=== PATIENT | female | born 1980 | race Caucasian/White ===

== ENCOUNTER 2024-08-20 12:17 | Emergency (ER) | payer OTHER, SELFPAY ==
[2024-08-20 12:19] VITALS: BP 133/94
--- NOTE | 2024-08-20 13:02 | ED.GENMED ---
History of Present Illness
<JOSE LUIS Simons Last Filed: 08/21/24 08:06>
General
Chief Complaint: Abdominal Symptoms
Source: patient
Exam Limitations: none
Time Seen by Provider: 08/20/24 12:36
Nursing documentation reviewed up to this point in time: agreed with
History of Present Illness
History of Present Illness:
pt is a 43 y/o F
says she started having diarrhea 5 days ago and has been having very liquidity stools sicne
she felt weak, dehydrated, got muscle cramps
did tele doc visit 2 days ago and was told it was probably viral and not to try immoidum
she was eating minimallyb ecause anthing she ate/drank went right through her
she got 2 IV bags of fluid from a [facility] company and felt a little better transiently but the diarrhea returned
she tried 4 doses immodium yestrerday and contiues to have diarrhea sicne
she went 15 times overnight
she feels weak and dehydrated and hyngry
she is not having abodminal pain other than cramps just before stools
she has some nauesa
no fever/chills, no recent surgery no recent abx, no other household members with same symptoms
Past History
<JOSE LUIS Simons Last Filed: 08/21/24 08:06>
Past History
ED Past Medical History: None
ED Past Surgical History: None
Social History
Tobacco: Non-smoker
Alcohol: None
Drug: None
Personal:
Living: with family
Employment: Employed
Review of Systems
<JOSE LUIS Simons Last Filed: 08/21/24 08:06>
Review of Systems
Allergies reviewed?: Yes
All Other Systems: Not applicable
Phy Exam
<JOSE LUIS Simons Last Filed: 08/21/24 08:06>
Physical Exam
Physical Exam:
GENERAL: Alert , in no apparent distress
EYE: pupils equal and reactive
NECK: Supple
ENT: o/p clr, mmm.
CARDIAC: Regular rate and rhythm,
LUNGS: Clear breath sounds bilaterally, no acute respiratory distress, no wheezes/rales/rhonchi
ABDOMEN: Soft, without focal tenderness, no r/g, no cvat, normal bowel sounds
NEUROLOGICAL: Alert and oriented, no focal neuro deficits
SKIN: Warm and dry, skin intact.
MUSCULOSKELETAL: No edema, well perfused. neg charly's sign
PSYCH: Normal and appropriate interaction.
Course
<Mayte Goodson PA-C - Last Filed: 08/21/24 08:06>
Orders/Labs/Results
Orders:
Orders
08/20/24 12:57
0.9% Sodium Chloride 1000 ml [Nss] 1,000 ml IV BOLUS
08/20/24 13:19
CPK [Creatine Phosphokinase] Urgent
Complete Blood Count/With Diff Urgent
Comprehensive Metabolic Panel Urgent
HCG, Serum Qualitative Screen Urgent
Comment: ADD ON
Lactic Acid Urgent
Lipase Urgent
Magnesium Urgent
08/20/24 14:56
CT Abd/Pel (IV only)-DH only Urgent
Comment:
Reason For Exam: severe diarrhea; unable to toleate po
0.9% Sodium Chloride 1000 ml [Nss] 1,000 ml IV BOLUS
Ondansetron Injectable [Zofran] 4 mg IV NOW STA
08/20/24 15:04
Add On- LAB Urgent
Comments:: hcg
Tests Added?: HCG
08/20/24 19:08
Norovirus by PCR Urgent
NACHO Source: Feces/Stool
Specimen Description:
Date Specimen was Collected: 08/20/24
Time Specimen was Collected: :
STOOL [C difficile Antigen & Toxins] Urgent
NACHO Source: Feces/Stool
Specimen Description:
Date Specimen was Collected: 08/20/24
Time Specimen was Collected: 19:06
Stool Culture Urgent
NACHO Source: Feces/Stool
Specimen Description:
Date Specimen was Collected: 08/20/24
Time Specimen was Collected: 19:
Abnormal Lab Results
08/20/24
13:19
Carbon Dioxide 31 H mmol/L
(22-30)
Glucose 100 H mg/dl
(70-99)
Lactic Acid < 0.5 L mmol/L
(0.7-2.0)
08/20/24 13:19
08/20/24 13:19
Vital Signs
Initial and Last Documented VS:
Initial Vital Signs
Temp Pulse Resp BP Pulse Ox
98.2 F 87 18 133/94 99
08/20/24 12:19 08/20/24 12:19 08/20/24 12:19 08/20/24 12:19 08/20/24 12:19
Last Documented Vital Signs
Temp Pulse Resp BP Pulse Ox
98.2 F 72 20 119/76 99
08/20/24 12:19 08/20/24 18:00 08/20/24 18:00 08/20/24 18:00 08/20/24 18:00
<Galo Hanson PA-C - Last Filed: 08/20/24 19:14>
Orders/Labs/Results
Orders:
Orders
08/20/24 12:57
0.9% Sodium Chloride 1000 ml [Nss] 1,000 ml IV BOLUS
08/20/24 13:19
CPK [Creatine Phosphokinase] Urgent
Complete Blood Count/With Diff Urgent
Comprehensive Metabolic Panel Urgent
HCG, Serum Qualitative Screen Urgent
Comment: ADD ON
Lactic Acid Urgent
Lipase Urgent
Magnesium Urgent
08/20/24 14:56
CT Abd/Pel (IV only)-DH only Urgent
Comment:
Reason For Exam: severe diarrhea; unable to toleate po
0.9% Sodium Chloride 1000 ml [Nss] 1,000 ml IV BOLUS
Ondansetron Injectable [Zofran] 4 mg IV NOW STA
08/20/24 15:04
Add On- LAB Urgent
Comments:: hcg
Tests Added?: HCG
08/20/24 19:08
Norovirus by PCR Urgent
NACHO Source: Feces/Stool
Specimen Description:
Date Specimen was Collected: 08/20/24
Time Specimen was Collected: 19:06
STOOL [C difficile Antigen & Toxins] Urgent
NACHO Source: Feces/Stool
Specimen Description:
Date Specimen was Collected: 08/20/24
Time Specimen was Collected: 19:06
Stool Culture Urgent
NACHO Source: Feces/Stool
Specimen Description:
Date Specimen was Collected: 08/20/24
Time Specimen was Collected: 19:06
Abnormal Lab Results
08/20/24
13:19
Carbon Dioxide 31 H mmol/L
(22-30)
Glucose 100 H mg/dl
(70-99)
Lactic Acid < 0.5 L mmol/L
(0.7-2.0)
08/20/24 13:19
08/20/24 13:19
Vital Signs
Initial and Last Documented VS:
Initial Vital Signs
Temp Pulse Resp BP Pulse Ox
98.2 F 87 18 133/94 99
08/20/24 12:19 08/20/24 12:19 08/20/24 12:19 08/20/24 12:19 08/20/24 12:19
Last Documented Vital Signs
Temp Pulse Resp BP Pulse Ox
98.2 F 72 20 119/76 99
08/20/24 12:19 08/20/24 18:00 08/20/24 18:00 08/20/24 18:00 08/20/24 18:00
<Mayte Goodson PA-C - Last Filed: 08/21/24 08:06>
MDM/Problems Addressed
Differential Diagnosis Includes:
colitis, infectious diarrhea, gastroenteritis
MDM/Problems Addressed:
43-year-old femal healthy, presents for 5 days of diarrhea, watery and nonbloody with intermittent abdominal cramps and some nausea. Patient says has been going on for 5 days despite IV fluids that she got as an outpatient and Imodium. Patient has
not had any risk factors for bacterial diarrhea. She feels weak and dehydrated. On exam she does have dry mucous membranes but no focal abdominal tenderness. She had called her doctor and was instructed to come in for CT scan
Initial screening lab work unremarkable with a normal lactic acid and white count. I do not suspect she will have a significant colitis however on reassessment patient is having some nausea and still does not feel well. She does not think she can
tolerate drinking oral contrast because she will have many bowel movements from it. So we will proceed with a CT scan though it probably will be a limited study. Anticipate discharge home with Lomotil and possibly a trial of antibiotics if
symptoms continue
SIGNED OUT at 1700 to chichi hanson pa-c pending ct.
<Galo Hanson PA-C - Last Filed: 08/20/24 19:14>
*Critical Care Note
Total Time (30-74mins, 75-104mins- exclusive of procedures): Not Applicable
<Galo Hanson PA-C - Last Filed: 08/20/24 19:14>
Update Note
Update Note:
Assumed care of patient from Annabel Goodson PA-C at shift change 1700. Awaiting CT scan. CT results reveal diffuse enteritis. Patient is feeling mildly improved, she is comfortable with discharge to home. Provided with empiric levofloxacin should
her symptoms not improve in the next 48 to 72 hours, educated on supportive care.
ED Attending Note
<Mayte Goodson PA-C - Last Filed: 08/21/24 08:06>
-
Portions of this chart may have been created with voice recognition software.� Occasional wrong word or��sound alike� substitutions may have occurred due to the inherent limitations of voice recognition software.
Discharge Plan
Departure
Patient Disposition: Home (Routine Discharge)
Date of Disposition: 08/20/24
Time of Disposition: 18:09
Patient with high blood pressure during this ER visit?: No
Condition: Fair
Covid-19: Not Applicable
Discharge Problem:
Diarrhea
Prescriptions:
New
levofloxacin 750 mg tablet
750 mg PO DAILY Qty: 3 0RF
No Action
doxycycline hyclate 100 mg capsule
100 mg PO BID Qty: 14 0RF
Referrals:
Sharif Bullock CRNP [Family Provider] - Follow up in 2-3 days
Activity Restrictions/Additional Instructions:
YOUR BLOOD WORK WAS REASSURING
KEEP STAYING HYRDATED AND TRY TO LET THE DIARREA RUN ITS COURSE
USE THE BRAT DIET (BANANAS RICE APPLESAUCE TOAST) TO HELP BIND YOUR STOOL
YOU CAN TRY IMMOIDIUM (BUT MAYBE DO NOT TAKE 4 TABS, JUST 1 TAB TWICE A DAY TO AVOID CONSTIPATION)
IF YOUR DIARRHEA IS STILL SIGNIFICANT, YOU CAN TRY THE LEVAQUIN 1 TAB DAILY X 3 DAYS
THIS IS AN ANTIBIOTIC THAT CAN CAUSE TENDINOPATHY SO AVOID STRENUOUS EXERCISE WHILE ON IT AND FOR A FEW DAYS AFTERWARD
FOLLOW UP WITH MCKENNA NULL NEXT WEEK
IT WOULD BE BEST TO PROVIDE A STOOL SAMPLE IF YOU KEEP HAVING DIARRHEA
Interventions
Interventions:
*Risk Screen - Suicide Last Done: 08/20/24 12:19
*General Assessment Last Done: 08/20/24 12:19
*Neglect/Abuse Screening Last Done: 08/20/24 12:19
*ED COVID-19 Vaccine History Last Done: 08/20/24 14:00
*Nursing Disposition Last Done: 08/20/24 19:14
CN-Uhdfrm-Ydvootsczw Assessment Last Done: 08/20/24 14:00
Discharge Date and Time
Discharge Date/Time: 08/20/24 19:15
Print Language: [place]
[2024-08-20] MEDS: NSS 1000 IV ×2 (13:28→15:13)
[2024-08-20 13:32] LABS: % Basophils 0.9 % (0-2); % Eosinophils 1.1 % (0-6); % Immature Granulocytes 0.2 % (0-0.5); % Lymphocytes 22.7 % (20.5-51.1); % Monocytes 9.3 % (1.7-9.3); % Neutrophils 65.8 % (42.2-75.2); Absolute Basophils 0.1 10^3/uL (0-0.2); Absolute Eosinophils 0.1 10^3/uL (0-0.7); Absolute Lymphocytes 1.3 10^3/uL (1.2-3.4); Absolute Monocytes 0.5 10^3/uL (0.1-0.6); Absolute Neutrophils 3.7 10^3/uL (1.4-6.5); Hemoglobin 13.9 g/dL (12.0-16.0); Mean Corp Hgb Conc. 34.8 g/dL (33.0-37.0); Mean Corpuscular Hgb 29.2 pg (27.0-31.0); Mean Platelet Volume 8.8 fL (7.4-10.4); Nucleated Red Blood Cells % 0 %; Platelet Count 261 10^3/uL (130-400); Red Blood Cell Count 4.76 10^6/uL (4.20-5.40); Red Cell Dist. Width 12.4 % (11.5-14.5); White Blood Cell Count 5.6 10^3/uL (4.8-10.8)
[2024-08-20 13:51] LABS: Lactic Acid < 0.5 mmol/L (0.7-2.0)
[2024-08-20 14:00] VITALS: BP 124/79
[2024-08-20 14:23] LABS: ALT (SGPT) 24 U/L (0-35); AST (SGOT) 33 U/L (14-36); Albumin 4.2 g/dl (3.5-5.0); Alkaline Phosphatase 42 U/L (38-126); Blood Urea Nitrogen 17 mg/dl (7-17); Carbon Dioxide 31 mmol/L (22-30); Chloride 101 mmol/L (98-107); Creatine Phosphokinase 52 U/L (30-135); Glucose 100 mg/dl (70-99); Lipase 96 U/L (23-300); Magnesium 1.8 mg/dl (1.6-2.3); Potassium 3.7 mmol/L (3.5-5.1); Sodium 141 mmol/L (135-145); Total Bilirubin 1.2 mg/dl (0.2-1.3); Total Protein 6.6 g/dl (6.3-8.2); eGFR > 60.00
[2024-08-20] MEDS: ZOFRAN 4 MG IV (15:13)
[2024-08-20 15:44] LABS: HCG, Serum Qualitative Screen Negative
[2024-08-20 16:00] VITALS: BP 119/88
[2024-08-20 18:00] VITALS: BP 119/76
== END 2024-08-20 19:15 | disposition home or self-care (01) ==
LOC: EMR 12:17
PROVIDERS: Physician Assistant; EMERGENCY PHYSICIAN Student in an Organized Health Care Education/Training Program; FAMILY PHYSICIAN Nurse Practitioner Primary Care
DX: R19.7 Diarrhea, unspecified (principal)
CPT/HCPCS: 99285; 96374; 96361 ×2; 74177; 80053; 82550; 83605; 83690; 83735; 84703; 85025; 87045; 87046; 87324; 87427; 87449; 87798; Q9967